=== PATIENT | male | born 1985 | race Caucasian/White ===

== ENCOUNTER 2017-10-24 02:01 | Emergency (ER) | payer SELFPAY ==
[~2017-10-24] VITALS: Ht 180.3 cm; Wt 68.0 kg
[~2017-10-24 02:01] MED LIST: HYDR1TAB75 PO; NAPR-915 PO; TRAM-42 PO
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
--- OUTSIDE RECORDS SUMMARY | 2017-10-24 02:09 | XMS REPORT | Continuity of Care Document ---
Author Author [facility] Organization [facility] Address Unknown Phone Unavailable Allergies Active Description Code Type Severity Reaction Onset Reported/Identified Relationship to Patient Clinical Status Yes NKANo Known Allergies NKA Miscellaneous Allergy Unknown N/A 06/30/2005 Medications There is no data. Problems Date Dx Coded Attending Type Code Diagnosis Diagnosed By 10/25/2009 Ot 789.00 10/25/2009 Ot 789.09 12/24/2012 KETAN AGEE MD Ot 305.1 12/24/2012 KETAN AGEE MD Ot 305.70 12/24/2012 KETAN AGEE MD Ot 719.16 12/24/2012 KETAN AGEE MD Ot 891.1 12/24/2012 KETAN AGEE MD Ot E000.8 12/24/2012 KETAN AGEE MD Ot E849.0 12/24/2012 KETAN AGEE MD Ot E922.9 12/24/2012 KETAN AGEE MD Ot V90.89 02/03/2015 ANA DAMICO DOA Kristel Ot 831.04 02/03/2015 ANA DAMICO DOA K Ot 959.2 02/03/2015 ANA DAMICO DOA K Ot E000.8 02/03/2015 ANA DAMICO DOA K Ot E006.4 02/03/2015 MARGAUX GARCAI HARJINDER K Ot E826.1 Procedures There is no data. Results There is no data. Encounters ACCT No. Visit Date/Time Discharge Status Pt. Type Provider Facility Loc./Unit Complaint [id number] 02/03/2015 01:31:00 02/03/2015 02:44:00 DIS Emergency HARJINDER DAMICO DO [facility] ER [id number] 12/22/2012 05:37:00 12/24/2012 14:15:00 DIS Inpatient KETAN AGEE MD [facility] SURGICAL [id number] 10/25/2009 15:04:00 Document Registration [id number] 09/18/2017 15:00:00 09/18/2017 23:59:59 [facility] Outpatient SHANA SLADE APRN [facility], [id number] 02/03/2015 09:37:03 ACT Document Registration
--- OUTSIDE RECORDS SUMMARY | 2017-10-24 02:09 | XMS REPORT ---
Author Author SHANA SLADE [facility] Address 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
--- OUTSIDE RECORDS SUMMARY | 2017-10-24 02:09 | XMS REPORT ---
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 [id number] [place] [id number] Feb, Dental examination Z01.20 [facility] [id number] [place] [phone] Jan, [facility] [id number] [place] [phone] Dec, [facility] [address] [place] [address] Dec, Other stimulant dependence, uncomplicated F15.20 [facility] [address] [place] [address] Nov, Other stimulant dependence, uncomplicated F15.20 [facility] [address] [place] [address] Nov, [facility] [id number] [place] [phone] September, [facility] [id number] [place] [id number] September, Dental examination Z01.20 [facility] [id number] [place] [phone] September, [facility] [id number] [place] [phone] Aug, [facility] [id number] [address] Jul, IMMUNIZATIONS No Known Immunizations SOCIAL HISTORY [...]
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
[2017-10-24] MEDS ORDERED: RX-NAPROXEN (NAPROSYN) 250 MG TAB PPK#4 PO STA (02:42)
[2017-10-24] MEDS ORDERED: KETOROLAC 60 MG/2 ML VIAL IM ONE (02:45)
[2017-10-24] MEDS ORDERED: LIDOCAINE 2% VISCOUS 15 ML UDC PO ONE (02:45)
[2017-10-24] MEDS ORDERED: AUGMENTIN 875 MG TAB (AMOXICILLIN/CLAVULANATE) PO SCH (02:45)
[2017-10-24] MEDS ORDERED: AMOX-358 PO (02:46)
[2017-10-24] MEDS ORDERED: NAPR-915 PO (02:46)
[2017-10-24] MEDS ORDERED: LIDO15SO2 MM (02:46)
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
[2017-10-24 03:06] VITALS: BP 136/100
== END 2017-10-24 03:06 | disposition home or self-care (01) ==
LOC: EDUNIT# 02:01 → ER 02:05
DX: K02.9 Dental caries, unspecified (principal); F12.10 Cannabis abuse, uncomplicated; F17.210 Nicotine dependence, cigarettes, uncomplicated; Z90.49 Acquired absence of other specified parts of digestive tract
CPT/HCPCS: 96372; 99284

== ENCOUNTER 2017-12-18 21:18 | Emergency (ER) | payer SELFPAY ==
[~2017-12-18] VITALS: Ht 157.5 cm; Wt 65.8 kg
[~2017-12-18 21:18] MED LIST changes: +AMOX-358 PO; +LIDO15SO2 MM
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
[2017-12-18] MEDS ORDERED: SULF1TAB35 PO (21:34)
[2017-12-18] MEDS ORDERED: TRIM/SULFAMETH 160/800 (SEPTRA DS) TAB PO ONE (21:45)
[2017-12-18 21:48] VITALS: BP 136/99
== END 2017-12-18 21:47 | disposition home or self-care (01) ==
LOC: EDUNIT# 21:18 → ER 21:19
DX: L03.113 Cellulitis of right upper limb (principal); Z77.22 Contact with and (suspected) exposure to environmental tobacco smoke (acute) (chronic); Z90.49 Acquired absence of other specified parts of digestive tract
CPT/HCPCS: 99283

== ENCOUNTER 2018-11-02 22:30 | Emergency (ER) | payer SELFPAY ==
[~2018-11-02 22:30] MED LIST changes: +SULF1TAB35 PO
--- NOTE | 2018-11-02 23:15 | NUR ---
pt here with self. pt alert gcs 15. pt c/o left ear pain rating 4-8 associated with decreased hearing left ear. no problems with right ear. pt relates " pimple 1 week ago i popped it" to left ear. pt also relates green drainage. on exam whole left ear is red and swoolen including swelling just inside the ear canal. appears like ? cellulitis. no swelling on face or neck noted proximal to left ear. pt denies dyspnea and no acute sighns of dyspnea noted. pt relates last tetanus less 5 yrs ago. done [place] pt at 2321.
[2018-11-02] MEDS ORDERED: SULF1TAB35 PO (23:26)
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
[2018-11-02] MEDS ORDERED: methylPREDNISolone 125 MG (Solu-MEDROL) VIAL IM ONE (23:30)
[2018-11-02] MEDS ORDERED: CLINDAMYCIN 600 MG/4ML (CLEOCIN) VIAL IM ONE (23:30)
[2018-11-02] MEDS ORDERED: TRIM/SULFAMETH 160/800 (SEPTRA DS) TAB PO ONE (23:30)
[2018-11-02] MEDS ORDERED: CLINDAMYCIN 300 MG/2ML (CLEOCIN) VIAL ONE (23:41)
[2018-11-03 00:22] VITALS: BP 132/89
--- NOTE | 2018-11-03 00:22 | NUR ---
d/c instructions to pt. told to read all papers. scripts faxed.pt left ambulatory by self. pt knows f/u i went over the handtyped by information on the chart. pt had no iv.
== END 2018-11-03 00:22 | disposition home or self-care (01) ==
LOC: EDUNIT# 22:30 → ER 22:32
DX: H60.12 Cellulitis of left external ear (principal); F15.10 Other stimulant abuse, uncomplicated; F17.210 Nicotine dependence, cigarettes, uncomplicated; Z98.890 Other specified postprocedural states; Z90.49 Acquired absence of other specified parts of digestive tract
CPT/HCPCS: 96372; 99284